=== PATIENT | female | born 1975 | race Caucasian/White ===

== ENCOUNTER 2023-09-10 01:04 | Emergency (ER) | payer OTHER, SELFPAY ==
[2023-09-10 01:10] VITALS: BP 157/103
[2023-09-10 04:20] VITALS: BP 137/87
--- NOTE | 2023-09-10 04:32 | ED.GENMED ---
History of Present Illness
General
Chief Complaint: Facial Problem
Source: patient
Exam Limitations: none
Time Seen by Provider: 09/10/23 04:31
Nursing documentation reviewed up to this point in time: agreed with
Travel History
Have you had any contact with someone who has COVID-19?: No
Do you have any symptoms of coronavirus? Fever > 100 degrees, chills, cough, shortness of breath, sore throat, loss of taste or smell, muscle aches, or headache?: No
History of Present Illness
History of Present Illness:
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 Treated with a course of Valtrex and prednisone. She states right facial paralysis eventually resolved after approximately 3 months. She admits to neglecting
follow-up with a PCP at that time. Lyme testing was negative.
She complains of mild left eye irritation that began 2 days ago; she thought that her eye was just dry from contacts. Then yesterday she noticed mild left facial droop and mild left eyelid lag. Very similar initial symptoms noted with onset of
Yang's palsy in 2013. She denies headache, no difficulty swallowing nor change in taste sensation. No vision difficulty, no discharge or drainage from her eye. She has not had a fever nor chills. She does admit to very minimal intermittent left
posterior neck pain but has not noticed a rash.
She has had no weakness or numbness of extremities. No difficulty with her speech. No difficulty with ambulation. No chest pain or coughing or shortness of breath. No dizziness nor lightheadedness nor palpitations. No nausea nor vomiting, no
diarrhea or constipation.
She denies risk of .
She takes no medicines on a daily basis.
Past History
Past History
ED Past Medical History: None
ED Past Surgical History: Tonsilectomy
Social History
Tobacco: Non-smoker
Personal:
Living: with family
Employment: Employed
Family History
Family History: Other (Noncontributory)
Phy Exam
Physical Exam
Physical Exam:
GENERAL: 48-year-old woman appears her stated age, awake and alert, mildly anxious but overall in no acute distress. Easily communicative.
EYE: pupils equal and reactive. Extraocular muscles intact. Conjunctiva are clear. No tearing. Anicteric
NECK: Supple, nontender, no meningismus, no significant adenopathy.
ENT: posterior pharynx is clear, oral mucosa is moist. TM clear b/l, nares patent. There is very minimal left facial droop along with minimal lag/asymmetry of left eyebrow raise and very minimal left eyelid lag when eyes are closed. Gross
sensation is intact. Tongue is midline. Posterior pharynx is clear.
CARDIAC: Regular rate and rhythm. no murmur.
LUNGS: Clear breath sounds bilaterally, no acute respiratory distress, no wheezes/rales/rhonchi
ABDOMEN: Soft, nondistended, without focal tenderness, no r/g, no cvat. normoactive BS.
NEUROLOGICAL: Alert and oriented x3, mild global left facial droop as above. Motor strength is otherwise 5/5 bilateral extremities. Gross sensation is intact. Gait is falk and steady.
SKIN: Warm and dry, normal color, skin intact. No rash.
MUSCULOSKELETAL: No C/C/E. peripheral pulses are full and equal b/l. No palpable tenderness.
PSYCH: Normal and appropriate interaction.
Course
Orders/Labs/Results
Orders:
Orders
09/10/23 04:31
Lyme Progressive Urgent
Prednisone [Deltasone] 50 mg PO NOW STA
09/10/23 04:31
Valacyclovir HCl [Valtrex] 1,000 mg PO NOW STA
Vital Signs
Initial and Last Documented VS:
Initial Vital Signs
Temp Pulse Resp BP Pulse Ox
98.6 F 147 18 157/103 98
09/10/23 01:10 09/10/23 01:10 09/10/23 01:10 09/10/23 01:10 09/10/23 01:10
Last Documented Vital Signs
Temp Pulse Resp BP Pulse Ox
98.6 F 91 20 137/87 100
09/10/23 01:10 09/10/23 04:20 09/10/23 01:23 09/10/23 04:20 09/10/23 04:20
MDM/Problems Addressed
Differential Diagnosis Includes:
History and exam consistent with recurrent Yang's palsy. Global left facial droop including left eyebrow is overall mild.
No other focal deficits.
Will treat with a course of Valtrex as well as a course of prednisone.
Will check Lyme titer for completeness sake.
Recommend lubricating eyedrops during the day and Lacri-Lube ointment to left eye at nighttime.
Patient has been encouraged to follow-up with a PCP and she will be referred to our family practice residency clinic.
Return precautions discussed.
*Pulse Oximetry
Patient hypoxic: no
*Critical Care Note
Total Time (30-74mins, 75-104mins- exclusive of procedures): Not Applicable
ED Attending Note
-
Portions of this chart may have been created with voice recognition software.� Occasional wrong word or��sound alike� substitutions may have occurred due to the inherent limitations of voice recognition software.
Discharge Plan
Departure
Patient Disposition: Home (Routine Discharge)
Date of Disposition: 09/10/23
Time of Disposition: 04:39
Patient with high blood pressure during this ER visit?: No
Condition: Good
Discharge Problem:
Yang's palsy
Instructions: Yang's Palsy (DC)
Prescriptions:
New
valacyclovir [Valtrex] 1 gram tablet
1,000 mg PO TID Qty: 20 0RF
prednisone 10 mg Tablet
See Rx Instructions .ROUTE .COMPLEX Qty: 30 0RF
Rx Instructions:
Take By Mouth:
40 mg daily x3 days, 30 mg daily x3 days,
20 mg daily x3 days, 10 mg daily x3 days.
No Action
prednisone 20 MG tablet
20 mg PO BID Qty: 10 0RF
Referrals:
[facility] [Outside] - Call in 1-3 days for appt
NONE,* [Family Provider] -
Interventions
Interventions:
*Risk Screen - Suicide Last Done: 09/10/23 01:10
*General Assessment Last Done: 09/10/23 01:10
*Neglect/Abuse Screening Last Done: 09/10/23 01:10
ED- Fall Risk Assessment Last Done: 09/10/23 04:14
ED- Neurological Assessment Last Done: 09/10/23 04:14
ED-Skin Assessment Last Done: 09/10/23 04:14
[2023-09-10] MEDS: DELTASONE 50 MG PO (04:38)
[2023-09-10] MEDS: VALTREX 1000 MG PO (04:38)
[2023-09-10 15:20] LABS: Lyme Antibody Screen, EIA Negative (Negative)
== END 2023-09-10 04:45 | disposition home or self-care (01) ==
LOC: EMR 01:04
PROVIDERS: EMERGENCY PHYSICIAN Emergency Medicine
DX: G51.0 Bell's palsy (principal)
CPT/HCPCS: 99283; 86618

== ENCOUNTER 2024-01-14 17:43 | Emergency (ER) | payer OTHER, SELFPAY ==
[2024-01-14 17:45] VITALS: BP 132/82
--- NOTE | 2024-01-14 18:46 | ED.GENMED ---
History of Present Illness
General
Chief Complaint: Throat Problem
Source: patient
Exam Limitations: none
Time Seen by Provider: 01/14/24 18:37
Nursing documentation reviewed up to this point in time: agreed with
Travel History
Have you had any contact with someone who has COVID-19?: No
Do you have any symptoms of coronavirus? Fever > 100 degrees, chills, cough, shortness of breath, sore throat, loss of taste or smell, muscle aches, or headache?: Yes
Symptoms:: sore throat
History of Present Illness
History of Present Illness:
Patient is a 48-year-old female who complains of a sore throat for the past 2 days however is not able to drink because of throat pain. She did see urgent care yesterday and had a negative rapid strep test but was given antibiotics, Cefzil. She
complains of worsening pain chills enlarged glands. She denies any runny nose denies any cough denies any shortness of breath. She is not drooling. She is able to swallow her secretions but complains of pain.
Past History
Past History
ED Past Medical History: None
ED Past Surgical History: Tonsilectomy
Social History
Tobacco: Non-smoker
Personal:
Living: with family
Employment: Employed
Family History
Family History: Other (Noncontributory)
Review of Systems
Review of Systems
Allergies reviewed?: Yes
All Other Systems: ROS reviewed and negative except as documented in HPI and ROS
Constitutional: Reports fatigue
EENT: Reports sore throat; Denies runny nose
Respiratory: Reports no symptoms; Denies trouble breathing
ABD/GI: Reports no symptoms
: Reports no symptoms
Musculoskeletal: Reports no symptoms
Skin: Reports no symptoms
Neurological: Reports no symptoms
Psychiatric: Reports no symptoms
Phy Exam
General Physical Exam
General Presentation: no apparent distress
General age: appears stated age
General Skin: warm and dry
General Habitus: normal
General Mental: alert
General Hydration: appears well hydrated
ENT Exam
ENT Exam: neck supple and other (throat is red , uvula midline no drooling (pt had tonsils removed) no drooling no trismus mild anterior cervical lymphadenopathy neck supple no meningismus)
Pulmonary Exam
Pulmonary Exam: lungs clear and no respiratory distress
Neurological Exam
Neurological Exam: alert and oriented x3
Musculoskeletal Exam
Musculoskeletal Exam: full ROM
Skin Exam
Skin Exam: normal color and warm/dry
Psychiatric Exam
Psychiatric Exam: normal mood/affect
Course
Orders/Labs/Results
Orders:
Orders
01/14/24 18:45
Vital Signs- Treatment ONCE
Frequency: Once
Dexamethasone Sod Phosphate [Decadron] 10 mg IV NOW STA
01/14/24 18:46
0.9% Sodium Chloride 1000 ml [Nss] 1,000 ml IV BOLUS
01/14/24 19:07
Complete Blood Count/With Diff Urgent
Comprehensive Metabolic Panel Urgent
Monotest Urgent
Rapid Strep Group A Urgent
GRUPO Source: Throat/Pharynx
Specimen Description:
Date Specimen was Collected: 01/14/24
Time Specimen was Collected: 19:04
Abnormal Lab Results
01/14/24
19:07
MCH 32.1 H pg
(27.0-31.0)
Absolute Neuts (auto) 7.7 H 10^3/uL
(1.4-6.5)
Absolute Lymphs (auto) 1.1 L 10^3/uL
(1.2-3.4)
Absolute Monos (auto) 1.0 H 10^3/uL
(0.1-0.6)
Neutrophils % 77.0 H %
(42.2-75.2)
Lymphocytes % 11.3 L %
(20.5-51.1)
Monocytes % 10.0 H %
(1.7-9.3)
Carbon Dioxide 21 L mmol/L
(22-30)
01/14/24 19:07
01/14/24 19:07
Vital Signs
Initial and Last Documented VS:
Initial Vital Signs
Temp Pulse Resp BP Pulse Ox
99.1 F 127 16 132/82 98
01/14/24 17:45 01/14/24 17:45 01/14/24 17:45 01/14/24 17:45 01/14/24 17:45
Last Documented Vital Signs
Temp Pulse Resp BP Pulse Ox
99.1 F 95 20 122/83 99
01/14/24 18:56 01/14/24 18:56 01/14/24 18:56 01/14/24 19:00 01/14/24 18:59
MDM/Problems Addressed
Differential Diagnosis Includes:
not limited to: viral sore throat, strep throat mono
MDM/Problems Addressed:
Symptoms likely consistent with viral sore throat patient nontoxic no drooling no trismus tolerating secretions well given fluids and a dose of Decadron here in the ER monitor negative feels well enough to go home with supportive care
*Critical Care Note
Total Time (30-74mins, 75-104mins- exclusive of procedures): Not Applicable
ED Attending Note
-
Portions of this chart may have been created with voice recognition software.� Occasional wrong word or��sound alike� substitutions may have occurred due to the inherent limitations of voice recognition software.
Discharge Plan
Departure
Patient Disposition: Home (Routine Discharge)
Date of Disposition: 01/14/24
Time of Disposition: 20:09
Patient with high blood pressure during this ER visit?: Yes
Condition: Fair
Covid-19: Not Applicable
Discharge Problem:
Acute sore throat
Instructions: Sore Throat, Adult (DC)
Prescriptions:
No Action
prednisone 20 MG tablet
20 mg PO BID Qty: 10 0RF
valacyclovir [Valtrex] 1 gram tablet
1,000 mg PO TID Qty: 20 0RF
prednisone 10 mg Tablet
See Rx Instructions .ROUTE .COMPLEX Qty: 30 0RF
Rx Instructions:
Take By Mouth:
40 mg daily x3 days, 30 mg daily x3 days,
20 mg daily x3 days, 10 mg daily x3 days.
Referrals:
NONE,* [Family Provider] -
Activity Restrictions/Additional Instructions:
As discussed gargle with warm salt water several times a day. You may use [id number] Cepacol lozenges for throat pain. Stay well-hydrated. You may take ibuprofen. Follow-up with a family doctor next several days and return if any
worsening of symptoms
Interventions
Interventions:
*Risk Screen - Suicide Last Done: 01/14/24 17:45
*General Assessment Last Done: 01/14/24 17:45
*Neglect/Abuse Screening Last Done: 01/14/24 17:45
ED-EENT Assessment Last Done: 01/14/24 19:04
ED- Pulmonary Assessment Last Done: 01/14/24 19:04
Discharge Date and Time
Print Language: YAKUT
[2024-01-14 18:53] VITALS: BP 124/76
[2024-01-14 18:56] VITALS: BP 124/76
[2024-01-14 19:00] VITALS: BP 122/83
[2024-01-14] MEDS: NSS 1000 IV (19:12)
[2024-01-14] MEDS: DECADRON 10 MG IV (19:12)
[2024-01-14 19:14] LABS: % Basophils 0.5 % (0-2); % Eosinophils 0.8 % (0-6); % Immature Granulocytes 0.4 % (0-0.5); % Lymphocytes 11.3 % (20.5-51.1); Absolute Basophils 0.1 10^3/uL (0-0.2); Absolute Eosinophils 0.1 10^3/uL (0-0.7); Absolute Lymphocytes 1.1 10^3/uL (1.2-3.4); Absolute Neutrophils 7.7 10^3/uL (1.4-6.5); Hematocrit 39.4 % (37.0-47.0); Hemoglobin 13.7 g/dL (12.0-16.0); Mean Corp Hgb Conc. 34.8 g/dL (33.0-37.0); Mean Corpuscular Hgb 32.1 pg (27.0-31.0); Mean Corpuscular Volume 92.3 fL (81.0-99.0); Mean Platelet Volume 9.2 fL (7.4-10.4); Nucleated Red Blood Cells % 0 %; Platelet Count 232 10^3/uL (130-400); Red Blood Cell Count 4.27 10^6/uL (4.20-5.40); Red Cell Dist. Width 12.2 % (11.5-14.5); White Blood Cell Count 10.1 10^3/uL (4.8-10.8)
[2024-01-14 19:35] LABS: Monotest Negative (Negative)
[2024-01-14 19:55] LABS: ALT (SGPT) 18 U/L (0-35); AST (SGOT) 24 U/L (14-36); Albumin 4.1 g/dl (3.5-5.0); Alkaline Phosphatase 67 U/L (38-126); Blood Urea Nitrogen 11 mg/dl (7-17); Calcium 9.6 mg/dl (8.4-10.2); Carbon Dioxide 21 mmol/L (22-30); Chloride 105 mmol/L (98-107); Glucose 95 mg/dl (70-99); Potassium 4.5 mmol/L (3.5-5.1); Sodium 135 mmol/L (135-145); Total Bilirubin 0.6 mg/dl (0.2-1.3); eGFR > 60.00
== END 2024-01-14 20:38 | disposition home or self-care (01) ==
LOC: EMR 17:43
PROVIDERS: Nurse Practitioner; EMERGENCY PHYSICIAN Emergency Medicine
DX: R07.0 Pain in throat (principal)
CPT/HCPCS: 99283; 96374; 96361; 80053; 85025; 86308; 87070; 87880